=== PATIENT | female | born 1980 | race Caucasian/White ===

== ENCOUNTER 2016-05-10 17:20 | Emergency (ER) | payer OTHER ==
[2016-05-10] MEDS ORDERED: DEXAMETHASONE SOD PHOS 10 MG/1 ML VIAL ONE (19:34)
[2016-05-10] MEDS ORDERED: ACETAMINOPHEN 325 MG TABLET ONE (19:34)
[2016-05-10] MEDS ORDERED: DIPHENHYDRAMINE HCL 50 MG/1 ML VIAL ONE (19:34)
[2016-05-10] MEDS ORDERED: LACTATED RINGERS 1,000 ML ONE (19:34)
[2016-05-10] MEDS ORDERED: PROCHLORPERAZINE 5 MG/ML 2 ML VIAL ONE (19:35)
[2016-05-10] MEDS ORDERED: MAGNESIUM SULFATE 2 G/50 ML 50 ML IV ONE (20:15)
== END 2016-05-10 21:39 | disposition home or self-care (01) ==
LOC: ED 17:20
DX: G43.909 Migraine, unspecified, not intractable, without status migrainosus (principal); R53.1 Weakness
CPT/HCPCS: 96375 ×3; 99284 ×2; 96365; 82962; J1200; J0780; J1100; A9270; J7120; J3475